=== PATIENT | female | born 1965 | race Caucasian/White ===

== ENCOUNTER 2016-09-23 19:07 | Emergency (ER) | payer MEDICAID ==
[2016-09-23 21:25] VITALS: BP 146/78
== END 2016-09-23 22:17 | disposition home or self-care (01) ==
LOC: ED 19:07
DX: M79.1 Myalgia (principal); M54.9 Dorsalgia, unspecified; Z79.1 Long term (current) use of non-steroidal anti-inflammatories (NSAID)
CPT/HCPCS: J1885

== ENCOUNTER 2016-12-14 18:22 | Emergency (ER) | payer SELFPAY ==
[2016-12-14 21:44] VITALS: BP 142/86
[2016-12-14 21:46] LABS: UA SPECIFIC GRAVITY >=1.030 (1.005-1.035); microscopic required? YES; urine erythrocyte 3+ (NEGATIVE)
== END 2016-12-14 21:44 | disposition home or self-care (01) ==
LOC: ED 18:22
PROVIDERS: Specialist
DX: N39.0 Urinary tract infection, site not specified (principal); E66.9 Obesity, unspecified; Z90.49 Acquired absence of other specified parts of digestive tract

== ENCOUNTER 2017-02-22 18:32 | Emergency (ER) | payer SELFPAY ==
[~2017-02-22] VITALS: Ht 152.4 cm; Wt 84.8 kg
[2017-02-22 19:34] VITALS: BP 147/91
== END 2017-02-22 19:34 | disposition home or self-care (01) ==
LOC: ED 18:32
DX: L04.2 Acute lymphadenitis of upper limb (principal)